=== PATIENT | male | born 1960 | race African-American/Black ===

== ENCOUNTER 2019-01-02 21:00 | Emergency (ER) | payer OTHER ==
[~2019-01-02] VITALS: Ht 185.4 cm; Wt 98.0 kg
[2019-01-02] MEDS ORDERED: IBUPROFEN 800MG TABLET PO ONE (22:45)
[2019-01-02 23:26] VITALS: BP 131/74
== END 2019-01-02 23:29 | disposition home or self-care (01) ==
LOC: ER 21:00
DX: S92.511A Displaced fracture of proximal phalanx of right lesser toe(s), initial encounter for closed fracture (principal); E11.9 Type 2 diabetes mellitus without complications; I48.91 Unspecified atrial fibrillation; F17.200 Nicotine dependence, unspecified, uncomplicated; Z98.890 Other specified postprocedural states; W01.0XXA Fall on same level from slipping, tripping and stumbling without subsequent striking against object, initial encounter; Y93.01 Activity, walking, marching and hiking; Y92.89 Other specified places as the place of occurrence of the external cause; Y99.8 Other external cause status
CPT/HCPCS: 73630; 99283